=== PATIENT | female | born 1960 | race Caucasian/White ===

== ENCOUNTER 2016-09-18 18:01 | Emergency (ER) | END 2016-09-18 21:19 | disposition home or self-care (01) | DX: S49.92XA Unspecified injury of left shoulder and upper arm, initial encounter (principal); F17.210 Nicotine dependence, cigarettes, uncomplicated; I10 Essential (primary) hypertension; E11.9 Type 2 diabetes mellitus without complications; R05 Cough; W18.39XA Other fall on same level, initial encounter; Y92.9 Unspecified place or not applicable ==

== ENCOUNTER 2017-05-06 15:46 | Emergency (ER) | payer OTHER ==
[~2017-05-06] VITALS: Wt 68.2 kg
[~2017-05-06 15:46] MED LIST: HYDR-906 PO; IBUP-1542 PO
--- NOTE | 2017-05-06 18:14 | ERD ---
ER Documentation Chief Complaint Chief Complaint BILATERAL LEG SWELLING X 4 DAYS HPI This is a very pleasant 56-year-old female with a history of diabetes who was recently placed in transitional housing who states that she has been walking a lot. The patient is describing bilateral lower extremity swelling and discomfort. No unilateral swelling, no history of DVT or pulmonary embolism. No recent fall or trauma. She describes tightness and fullness sensation in the bilateral lower extremities with associated edema. Mild erythema is noted to the bilateral lower extremities without warmth or tenderness. No fevers or chills. ROS All systems reviewed and are negative except as per history of present illness. Medications Home Meds Active Scripts Ibuprofen* (Motrin*) 600 Mg Tab, 600 MG PO Q6H Y for PAIN, #20 TAB Prov:MELODY GROVE 09/18/16 Hydrocodone/Acetaminophen ([place] 5-325 Tablet) 1 Each Tablet, 1 TAB PO Q6H Y for PAIN, #14 TAB Prov:PADMINI CORRAL MD 06/13/16 PMhx/Soc Hx Alcohol Use: No Hx Substance Use: Yes (marijuana) Hx Tobacco Use: Yes FmHx Family History: No diabetes Physical Exam Vitals Vital Signs Date Time Temp Pulse Resp B/P Pulse Ox O2 Delivery O2 Flow Rate FiO2 05/06/17 18:57 76 18 149/75 100 Room Air 05/06/17 15:51 98.1 78 18 176/77 92 Physical Exam General: Well developed, well nourished, no acute distress Head: Normocephalic, atraumatic. Eyes: Pupils equally reactive, EOM intact ENT: Moist mucous membranes Neck: Supple, no lymphadenopathy Respiratory: Lungs clear bilaterally, no distress Cardiovascular: RRR, no murmurs, rubs, or gallops Abdominal: Soft, non-tender, non-distended, no peritoneal signs : Deferred MSK: Bilateral lower extremity pitting edema approximately 2+, right slightly greater than left but mostly bilaterally, 2+ dorsalis pedis and posterior tibial pulses with good capillary refill, no skin breakdown, mild erythema noted that is more consistent with venous stasis without warmth or lymphangitic spread., Negative Homans sign bilaterally soft compartments. Neurologic: Alert and oriented, moving all extremities, normal speech, no focal weakness, no cerebellar signs Skin: No rash Psych: Normal mood Result Diagram: 11184905/06/17 185 Results 24 hrs Laboratory Tests Test 05/06/17 18:50 White Blood Count 8.010^3/ul Red Blood Count 4.6410^6/ul Hemoglobin 13.9g/dl Hematocrit 42.0% Mean Corpuscular Volume 90.5fl Mean Corpuscular Hemoglobin 30.0pg Mean Corpuscular Hemoglobin Concent 33.1g/dl Red Cell Distribution Width 12.1% Platelet Count 68047^3/UL Mean Platelet Volume 10.1fl Neutrophils % 72.2% Lymphocytes % 19.4% Monocytes % 6.4% Eosinophils % 1.4% Basophils % 0.4% Nucleated Red Blood Cells % 0.0/100WBC Neutrophils # 5.810^3/ul Lymphocytes # 1.610^3/ul Monocytes # 0.510^3/ul Eosinophils # 0.110^3/ul Basophils # 0.010^3/ul Nucleated Red Blood Cells # 0.010^3/ul Prothrombin Time 13.3Sec Prothrombin Time Ratio 1.0 INR International Normalized Ratio 1.01 Activated Partial Thromboplast Time 32.6Sec Sodium Level 141mmol/L Potassium Level 3.4mmol/L Chloride Level 100mmol/L Carbon Dioxide Level 31mmol/L Anion Gap 13 Blood Urea Nitrogen 9mg/dl Creatinine 0.66mg/dl Glucose Level 152mg/dl Calcium Level 9.7mg/dl Total Bilirubin 0.4mg/dl Direct Bilirubin 0.00mg/dl Indirect Bilirubin 0.4mg/dl Aspartate Amino Transf (AST/SGOT) 20IU/L Alanine Aminotransferase (ALT/SGPT) 27IU/L Alkaline Phosphatase 123IU/L Total Protein 7.6g/dl Albumin 4.0g/dl Globulin 3.60g/dl Albumin/Globulin Ratio 1.11 Procedures/MDM EKG, MONITORS, & DIAGNOSTIC IMAGING: Bilateral lower extremity duplex: Indication for advanced imaging: Patient has significant lower extremity swelling, need to rule out DVT Summary of radiologist interpretation: No evidence of DVT LAB INTERPRETATION: No evidence of leukocytosis or left shift, no electrolyte disturbance or renal failure MEDICAL DECISION MAKING: The patient presents with lower extremity swelling. This is most consistent with likely dependent and peripheral edema secondary to ambulation increased. No evidence of fracture or deep space infection no evidence of acute arterial occlusion. The patient has no significant risk factors for DVT but will benefit from ultrasound given significant swelling. No signs or symptoms concerning for CHF, acute renal failure or liver failure. Screening laboratory values would be appropriate. The patient will benefit from duplex. I discussed compression stockings and elevation of feet. The patient has mild erythema but this is more consistent with venous stasis rather than cellulitis. Low conical concern for cellulitis however the patient is a diabetic. If the patient has any evidence of leukocytosis or infectious process, initiation of empiric antibiotics may be reasonable. ER COURSE: The patient's laboratory testing and diagnostic imaging is unrevealing. The patient is resting comfortably and ambulatory. I believe this is consistent with venous stasis dermatitis and peripheral edema. The patient does not have any evidence of infectious process. Her clinical exam is not consistent with a cellulitis. I do not believe empiric antibiotics are necessary. I discussed elevation, compression stockings and return precautions were discussed. The patient verbalized understanding. I kept the patient and/or family informed of laboratory and diagnostic imaging results throughout the emergency room course. DISPOSITION PLAN: We discussed follow up with the patient's primary care doctor within 24 to 48 hours as needed. We also discussed return to the emergency room for worsening symptoms or worsening condition. Outpatient referral: [None required] Departure Diagnosis: Primary Impression: Peripheral edema Condition: Stable LORIE MACKEY MD May 06, 2017 18:14
--- NOTE | 2017-05-06 18:49 | RADRPT ---
PROCEDURE: US Lower extremity Venous. CLINICAL INDICATION: BLE swelling TECHNIQUE: Multiple sonographic images of the bilateral lower extremity deep venous system was obt ained utilizing grayscale, color-flow, compressive sonography and doppler imaging with augmentation. The images were reviewed on a PACS workstation. COMPARISON: None. FINDINGS: There is normal compressibility and flow within the bilateral common femoral, deep femoral, superfic ial femoral and popliteal veins. The deep veins the calf were incompletely visualized. IMPRESSION: No sonographic evidence for deep venous thrombosis in the bilateral lower extremities. Physician Hemant Date Time Electronically viewed and signed by Physician Hemant on 05/06/2017 18:49 ML/
[2017-05-06 18:57] VITALS: RESP 18
[2017-05-06 20:30] VITALS: BP 160/70; PULSE 70
== END 2017-05-06 20:30 | disposition home or self-care (01) ==
LOC: E/R 15:46
DX: R60.0 Localized edema (principal); Z87.891 Personal history of nicotine dependence
CPT/HCPCS: 36415; 80053; 85025; 85610; 85730; 93970